=== PATIENT | male | born 1945 | race Caucasian/White ===

== ENCOUNTER → 2023-05-16 15:05 | Outpatient (REF) | payer MEDICARE, BC, SELFPAY | LOC: HWRAD 15:05 | PROVIDERS: ATTENDING PHYSICIAN Internal Medicine Critical Care Medicine; FAMILY PHYSICIAN Internal Medicine | DX: R05.1 Acute cough (principal); J47.1 Bronchiectasis with (acute) exacerbation | CPT/HCPCS: 71250 ==

== ENCOUNTER → 2023-05-27 08:42 | Outpatient (REF) | payer MEDICARE, BC, SELFPAY ==
[2023-05-27 09:24] LABS: % Basophils 0.6 % (0-2); % Eosinophils 2.2 % (0-6); % Immature Granulocytes 0.1 % (0-0.5); % Lymphocytes 21.6 % (20.5-51.1); % Monocytes 6.8 % (1.7-9.3); % Neutrophils 68.7 % (42.2-75.2); Absolute Eosinophils 0.2 10^3/uL (0-0.7); Absolute Lymphocytes 1.6 10^3/uL (1.2-3.4); Absolute Monocytes 0.5 10^3/uL (0.1-0.6); Hematocrit 44.4 % (39.0-52.0); Hemoglobin 14.5 g/dL (13.0-18.0); Mean Corp Hgb Conc. 32.7 g/dL (33.0-37.0); Mean Corpuscular Hgb 29.1 pg (27.0-31.0); Mean Platelet Volume 8.9 fL (7.4-10.4); Nucleated Red Blood Cells % 0 % (-); Platelet Count 379 10^3/uL (130-400); Red Blood Cell Count 4.99 10^6/uL (4.70-6.10); Red Cell Dist. Width 12.8 % (11.5-14.5); White Blood Cell Count 7.2 10^3/uL (4.8-10.8)
[2023-05-27 09:59] LABS: ALT (SGPT) 15 U/L (0-50); AST (SGOT) 23 U/L (17-59); Albumin 4.3 g/dl (3.5-5.0); Alkaline Phosphatase 77 U/L (38-126); Blood Urea Nitrogen 21 mg/dl (9-20); Calcium 10.2 mg/dl (8.4-10.2); Carbon Dioxide 29 mmol/L (22-30); Chloride 97 mmol/L (98-107); Glucose 95 mg/dl (70-99); HDL Cholesterol 63 mg/dl; LDL Cholesterol, Calculated 104 mg/dl; Sodium 136 mmol/L (135-145); Total Bilirubin 0.5 mg/dl (0.2-1.3); Total Cholesterol 192 mg/dl (50-199); Total Protein 7.5 g/dl (6.3-8.2); Triglyceride 129 mg/dl (10-149); Very Low Density Lipoprotein 25 mg/dl (0-30); eGFR > 60.00
[2023-05-27 10:23] LABS: PSA, Total - Diagnostic 0.89 ng/ml (0.0-4.0)
== END ==
LOC: REG 08:42
PROVIDERS: ATTENDING PHYSICIAN Internal Medicine
DX: E78.2 Mixed hyperlipidemia (principal); R73.01 Impaired fasting glucose; C61 Malignant neoplasm of prostate
CPT/HCPCS: 36415; 80053; 80061; 83036; 84153; 85025

== ENCOUNTER 2024-05-04 19:47 | Inpatient (IN) | payer MEDICARE, BC, SELFPAY ==
[2024-05-04 15:39] VITALS: BP 137/74
[2024-05-04 16:05] LABS: % Basophils 0.4 % (0-2); % Eosinophils 0.2 % (0-6); % Immature Granulocytes 0.7 % (0-0.5); % Lymphocytes 11.2 % (20.5-51.1); % Neutrophils 80.5 % (42.2-75.2); Absolute Basophils 0.1 10^3/uL (0-0.2); Absolute Immature Granulocytes 0.1 10^3/uL (0-0.05); Absolute Lymphocytes 1.5 10^3/uL (1.2-3.4); Absolute Neutrophils 11.1 10^3/uL (1.4-6.5); Hematocrit 37.9 % (39.0-52.0); Hemoglobin 12.8 g/dL (13.0-18.0); Mean Corp Hgb Conc. 33.8 g/dL (33.0-37.0); Mean Corpuscular Hgb 29.8 pg (27.0-31.0); Mean Corpuscular Volume 88.1 fL (80.0-94.0); Mean Platelet Volume 8.1 fL (7.4-10.4); Nucleated Red Blood Cells % 0 % (-); Platelet Count 382 10^3/uL (130-400); Red Cell Dist. Width 12.7 % (11.5-14.5); White Blood Cell Count 13.8 10^3/uL (4.8-10.8)
[2024-05-04 16:27] LABS: COVID-19 Antigen Negative (Negative)
[2024-05-04 16:28] LABS: ALT (SGPT) 16 U/L (0-50); AST (SGOT) 20 U/L (17-59); Albumin 3.8 g/dl (3.5-5.0); Alkaline Phosphatase 71 U/L (38-126); Blood Urea Nitrogen 16 mg/dl (9-20); Calcium 9.4 mg/dl (8.4-10.2); Carbon Dioxide 29 mmol/L (22-30); Chloride 96 mmol/L (98-107); Glucose 110 mg/dl (70-99); Potassium 4.1 mmol/L (3.5-5.1); Sodium 134 mmol/L (135-145); Total Bilirubin 0.4 mg/dl (0.2-1.3); Total Protein 6.9 g/dl (6.3-8.2); eGFR > 60.00
[2024-05-04 16:30] LABS: NT-proBNP 128 pg/ml
--- NOTE | 2024-05-04 17:39 | ED.GENMED ---
History of Present Illness
General
Chief Complaint: Cough
Source: patient
Exam Limitations: none
Time Seen by Provider: 05/04/24 17:37
Nursing documentation reviewed up to this point in time: agreed with
History of Present Illness
History of Present Illness:
The patient is a pleasant 78-year-old man with a past medical history of asthma and bronchiectasis who reports persistent ongoing severe cough despite taking 5 days of Levaquin. Patient reports shortness of breath. He denies fever. He also
reports swelling of his bilateral ankles, which he is wondering is from the Levaquin. He denies a history of PE and DVT. He denies chest pain.
Past History
Past History
ED Past Medical History: Asthma and Other (Bronchiectasis)
ED Past Surgical History: Other
Social History
Tobacco: Non-smoker
Alcohol: None
Drug: None
Personal:
Living: with family
Employment: Retired
Family History
Family History: Other
Review of Systems
Review of Systems
Allergies reviewed?: Yes
All Other Systems: ROS reviewed and negative except as documented in HPI and ROS
Constitutional: Reports fatigue
EENT: Reports no symptoms
Respiratory: Reports cough and trouble breathing
Cardiac: Reports no symptoms
ABD/GI: Reports no symptoms
: Reports no symptoms
Musculoskeletal: Reports edema
Skin: Reports no symptoms
Neurological: Reports no symptoms
Endocrine: Reports no symptoms
Hematologic/Lymphatic: Reports no symptoms
Psychiatric: Reports no symptoms
Phy Exam
Physical Exam
Physical Exam:
Physical Exam
General: no apparent distress, not acutely ill
Neck: supple. no meningeal signs. normal psoterior pharynx
Heart: s1/s2 regular rate and rhythm, no murmur. equal radial pulses.
Lungs: Bilateral crackles. No tachypnea or respiratory distress
Abdomen: normal bowel sounds. not tender. no CVAT
Neuro: alert and oriented. no focal neurological deficits
Skin: no rash
Psychiatric: well kept. interactive and cooperative
Extremities: no edema. no calf tenderness. negative homans. good distal pulses
Course
Orders/Labs/Results
Orders:
Orders
05/04/24 15:44
Electrocardiogram (*1) Urgent
Reason for Study: Shortness of Breath
05/04/24 15:45
EKG- Treatment ONCE
CR Chest - 2 Views Urgent
Comment:
Reason For Exam: PARK, productive cough x 1 week
05/04/24 15:53
COVID-19 Antigen Urgent
Source: Nasal Swab
Complete Blood Count/With Diff Urgent
Comprehensive Metabolic Panel Urgent
NT-proBNP Urgent
Influenza A+B Rapid Molecular Urgent
PEDRO Source: Nasal Swab
Specimen Description:
05/04/24 18:38
CefTRIAXone [Rocephin] 1,000 mg IV NOW STA
05/04/24 18:39
Azithromycin 500 mg/250 ml [Zithromax Infusion] 500 mg in 250 ml IV NOW
Abnormal Lab Results
05/04/24
15:53
WBC 13.8 H 10^3/uL
(4.8-10.8)
RBC 4.30 L 10^6/uL
(4.70-6.10)
Hgb 12.8 L g/dL
(13.0-18.0)
Hct 37.9 L %
(39.0-52.0)
Abs Immat Gran (auto) 0.1 H 10^3/uL
(0-0.05)
Absolute Neuts (auto) 11.1 H 10^3/uL
(1.4-6.5)
Absolute Monos (auto) 1.0 H 10^3/uL
(0.1-0.6)
Immature Gran % 0.7 H %
(0-0.5)
Neutrophils % 80.5 H %
(42.2-75.2)
Lymphocytes % 11.2 L %
(20.5-51.1)
Sodium 134 L mmol/L
(135-145)
Chloride 96 L mmol/L
(98-107)
Glucose 110 H mg/dl
(70-99)
05/04/24 15:53
05/04/24 15:53
Vital Signs
Initial and Last Documented VS:
Initial Vital Signs
Temp Pulse Resp BP Pulse Ox
98.4 F 110 18 137/74 94
05/04/24 15:39 05/04/24 15:39 05/04/24 15:39 05/04/24 15:39 05/04/24 15:39
Last Documented Vital Signs
Temp Pulse Resp BP Pulse Ox
98.4 F 102 22 143/70 93
05/04/24 15:39 05/04/24 19:00 05/04/24 19:00 05/04/24 19:00 05/04/24 19:00
MDM/Problems Addressed
Differential Diagnosis Includes:
Acute viral pneumonia, acute bacterial pneumonia, asthma exacerbation
MDM/Problems Addressed:
Patient presents with acute cough and shortness of breath
Chronic conditions affecting care:
Asthma, bronchiectasis
Acute Exacerbation and/or Progression of Chronic Illness:
Patient may have acute exacerbation of asthma because from recent upper respiratory infection or pneumonia
*Radiology
Radiology exam reviewed: preliminary read by ED provider (Bilateral infiltrates seen. Chest x-ray reviewed by me) and radiology read reviewed
*Pulse Oximetry
Patient hypoxic: no
*EKG
Interpreted by ED Provider?: Yes
Interpretation: abnormal
Comparison EKG: no changes
Rate: tachycardiac
Rhythm: sinus
Tanner: left axis deviation
Interval: normal interval
QRS Pattern: normal QRS
Ischemia: non-specific ST changes
*Men'S Garment Fitter Interpretation
Rate: normal
Interpretation: normal
Rhythm: sinus
*Critical Care Note
Total Time (30-74mins, 75-104mins- exclusive of procedures): Not Applicable
Data Reviewed
Review of Other/Old Records Reveals: Discharge Summary (Discharge summary reviewed from April 2022 when patient was admitted for shortness of breath and bronchitis)
Source: patient
Patient Management
Social determinants of health affecting care: Living situation
Discussion with other providers: Hospitalist
Escalation/DeEscalation of care consider admission/obs:
Given patient still has what is concerning for bilateral pneumonia and ongoing symptoms, despite several days of Levaquin, decision made to admit for IV antibiotics
ED Attending Note
-
Portions of this chart may have been created with voice recognition software.� Occasional wrong word or��sound alike� substitutions may have occurred due to the inherent limitations of voice recognition software.
Discharge Plan
Departure
Patient Disposition: Admit
Date of Disposition: 05/04/24
Time of Disposition: 18:32
Admit to: Med/Surg
Presentation/result/management discussed w/ accepting MD/DO: Hospitalist
Patient with high blood pressure during this ER visit?: Yes
Condition: Good
Covid-19: Negative COVID-19
Discharge Problem:
Pneumonia
Prescriptions:
No Action
fluticasone propionate 1 SPRAY spray,suspension
2 spray intranasal BID
triamterene-hydrochlorothiazid 37.5-25 mg capsule
1 cap PO DAILY
albuterol sulfate 90 mcg/actuation HFA aerosol inhaler
2 puff INHALATION R Q4HPRN PRN (Reason: sob/wheezing)
calcium carbonate-vitamin D3 500 mg-3.125 mcg (125 unit) Tablet
1 tab PO DAILY
sodium chloride 3 % Solution For Nebulization
4 ml INHALATION R BID
Theragen Tablet
1 tab PO DAILY
acetaminophen [Tylenol Extra Strength] 500 mg Tablet
1,000 mg PO Q6HPRN PRN (Reason: headache/mild pain)
benzonatate 100 mg Capsule
100 mg PO TIDPRN PRN (Reason: cough)
Dulera 200-5 mcg/actuation Hfa Aerosol Inhaler
2 puff INHALATION R BID
guaifenesin [Mucinex] 600 mg Tablet Extended Release 12hr
600 mg PO DAILY
Referrals:
David Albarran DO [Family Provider] -
Interventions
Interventions:
*Risk Screen - Suicide Last Done: 05/04/24 15:39
*General Assessment Last Done: 05/04/24 15:39
*Neglect/Abuse Screening Last Done: 05/04/24 15:39
ED- Pulmonary Assessment Last Done: 05/04/24 18:03
Discharge Date and Time
Print Language: SLOVENIAN
[2024-05-04 18:06] VITALS: BP 125/61
[2024-05-04] MEDS: ROCEPHIN 1000 MG IV (18:52)
[2024-05-04] MEDS: ZITHROMAX INFUSION 250 IV (18:56)
[2024-05-04 19:00] VITALS: BP 143/70
--- NOTE | 2024-05-04 19:02 | HPS.HSE ---
Family Physician
-
Family Physician: David Albarran
Chief Complaint
-
persistent cough
History of Present Illness
Patient is a 78-year-old male with past medical history significant for asthma, bronchiectasis and GERD who presented to [facility] ED for evaluation of severe persistent cough. Patient states cough started on Saturday, 10 days ago, he went
to see Tumbler Drier Operator Saturday last week who prescribed Levaquin and supportive measures. Patient reports he took 5 days of Levaquin and felt no better but also reports not feeling any worse. Patient states cough has been keeping him up and is hard to
sleep. He denies any associated symptoms such as fever, chills, nausea, vomiting, diarrhea or shortness of breath.
Medical History
Past Medical History
Past Medical History: Reports Other
Additional Past Medical History:
asthma
bronchiectasis
hyperlipidemia
GERD
Past Surgical History: Reports Other
Additional Past Surgical History:
nasal polyectomy
CATERACT SURGERY IN BOTH EYES 02/2019
Radiation for Prostate CA 2018
Right L4-L5 IL QING 06/15/21
Right L4-L5 IL QING 07/20/21
B/L L4-L5, L5-S1 MBB 08/22/21
MILD procedure- Dr Montano 03/2022
tonsillectomy
Social History
Tobacco: Non-smoker
Alcohol: None
Drug: None
Personal:
Living: With Family
Employment: Retired
Family History
Family History: Not pertinent
Allergies / Home Medications
Allergies reflects when Allergies were last updated in [facility].
Home Medications with original date entered in [facility]
Allergy/Medication List:
Allergies
Allergy/AdvReac Type Severity Reaction Status Date / Time
Sulfa (Sulfonamide Allergy Mild Unknown Verified 02/17/18 14:45
Antibiotics)
cefuroxime [From Ceftin] AdvReac Mild Nausea Verified 04/23/22 13:37
Home Medications
fluticasone propionate 50 mcg/actuation nasal spray,suspension 2 spray intranasal BID Allergies 02/14/18
albuterol sulfate 90 mcg/actuation aerosol inhaler 2 puff inhalation R Q4HPRN PRN sob/wheezing 04/21/22
calcium 500 mg (as carbonate)-vitamin D3 3.125 mcg (125 unit) tablet 1 tab PO DAILY Supplement 04/21/22
triamterene 37.5 mg-hydrochlorothiazide 25 mg capsule 1 cap PO DAILY Blood pressure 04/21/22
acetaminophen 500 mg tablet (Tylenol Extra Strength) 1,000 mg PO Q6HPRN PRN headache/mild pain 05/04/24
benzonatate 100 mg capsule 100 mg PO TIDPRN PRN cough 05/04/24
guaifenesin 600 mg tablet, extended release 12 hr (Mucinex) 600 mg PO DAILY 05/04/24
mometasone-formoterol HFA 200 mcg-5 mcg/actuation aerosol inhaler (Dulera) 2 puff inhalation R BID 05/04/24
sodium chloride 3 % for nebulization 4 ml inhalation R BID 05/04/24
therapeutic multivitamin 1 tab PO DAILY 05/04/24
Review of Systems
-
History Source: Patient
Constitutional: Reports No Symptoms
EENT: Reports No Symptoms
Respiratory: Reports Cough
Cardiac: Reports No Symptoms
Abdomen/GI: Reports No Symptoms
: Reports No Symptoms
Musculoskeletal: Reports No Symptoms
Skin: Reports No Symptoms
Neurological: Reports No Symptoms
Endocrine: Reports No Symptoms
Hematologic/Lymphatic: Reports No Symptoms
Psych: Reports No Symptoms
Physical Exam
Vital Signs
Vital Signs
Temp Pulse Resp BP Pulse Ox
98.4 F 95 17 125/61 94
05/04/24 15:39 05/04/24 18:30 05/04/24 18:30 05/04/24 18:06 05/04/24 18:30
Physical Exam
General: Well Developed, Well Nourished, No Apparent Distress, Comfortable and Conversant
HEENT: NormoCephalic, Moist mucous membranes, Atraumatic, [place] Conjunctivae, Nose Appears Normal and Ears Appear Normal
Respiratory: Clear and Non Labored Respirations
Cardiac: S1/S2 and Regular Rhythm
GI: Soft, Non Tender, Non Distended and Normal Bowel Sounds; No Organomegaly
Rectal: Deferred by Provider
Genito-urinary: Deferred by me
Musculoskeletal: No Clubbing, No Cyanosis and No Edema
Skin: Warm and IV/Catheter Site
Neuro: Awake, Alert, AO x 3 and Nonfocal/grossly intact
Psych: Calm and Intact Judgment/Insight
Laboratory Results
-
05/04/24 15:53
05/04/24 15:53
Laboratory Results
Total Bilirubin 0.4 mg/dl (0.2-1.3) 05/04/24 15:53
AST 20 U/L (17-59) 05/04/24 15:53
ALT 16 U/L (0-50) 05/04/24 15:53
Alkaline Phosphatase 71 U/L (38-126) 05/04/24 15:53
Data Reviewed
-
Diagnostic Radiology: Report Reviewed by me (CXR: Patchy left lower lobe opacity suspicious for pneumonia. Cannot exclude minimal patchy right lower lobe pneumonia.)
Medical Tests (Nuc Med, Echo, EKG etc): Report Reviewed by me (EKG: SINUS TACHYCARDIA POSSIBLE LEFT ATRIAL ENLARGEMENT INCOMPLETE RIGHT BUNDLE BRANCH BLOCK LEFT ANTERIOR FASCICULAR BLOCK)
Lab Data: Labs Reviewed by me (WBC 13.8)
Impression/Plan
-
IMPRESSION/PLAN:
#pneumonia
pneumonia that failed out patient antibiotic therapy
Covid: Negative
Influenza: negative
EKG: SINUS TACHYCARDIA
POSSIBLE LEFT ATRIAL ENLARGEMENT
INCOMPLETE RIGHT BUNDLE BRANCH BLOCK
LEFT ANTERIOR FASCICULAR BLOCK
CXR: Patchy left lower lobe opacity suspicious for pneumonia.
Cannot exclude minimal patchy right lower lobe pneumonia.
- Admit to med/surg
- IV Cefepime and Azithromycin
- Sputum cultures
- Legionella and Step antigen
- supportive care
#asthma
#bronchiectasis
- continue albuterol HFA PRN, fluticasone nasal spray, Dulera and NaCl nebs
#hyperlipidemia
#GERD
Code status: full code
DVT prophylaxis: Lovenox Sq
--- NOTE | 2024-05-04 19:32 | W.PN.UPDATE ---
Update Note
Progress Note Update
This is an addendum to the H&P written by Nalini Louis on 05/04/2024. Patient seen and examined independently with HOG TENDER.
78-year-old male past medical history of pneumonias in the past, asthma, bronchiectasis, hypertension, presenting with cough 10 days ago that is productive.
Completed 5-day course of Levaquin yesterday without improvement.
Labs show leukocytosis
Chest x-ray shows patchy left lower lobe opacity suspicious for pneumonia. Cannot exclude right lower lobe pneumonia.
COVID-negative. Flu negative.
Patient with persistent left lower lobe pneumonia despite treatment with Levaquin. Check sputum culture. Check strep antigen Legionella. Cefepime/azithromycin.
[2024-05-04 20:07] VITALS: BP 130/64
[2024-05-04] MEDS: MAXIPIME 1000 MG IV (22:14)
[2024-05-04] MEDS: STERILE WATER FOR INJECTION 10 ML IV (22:15)
[2024-05-04 22:28] VITALS: BMI 26.7
[2024-05-04] MEDS: SYMBICORT 160/4.5 MCG INHALER INH (23:09)
[2024-05-04] MEDS: SODIUM CHLORIDE 3% FOR INHALATION INH (23:09)
[2024-05-05] MEDS: MAXIPIME 1000 MG IV ×4 (05:00→22:15)
[2024-05-05] MEDS: STERILE WATER FOR INJECTION 10 ML IV ×4 (05:00→22:14)
[2024-05-05 05:03] VITALS: BP 120/68
[2024-05-05 05:12] LABS: Hematocrit 33.4 % (39.0-52.0); Hemoglobin 11.9 g/dL (13.0-18.0); Mean Corp Hgb Conc. 35.6 g/dL (33.0-37.0); Mean Corpuscular Hgb 31.9 pg (27.0-31.0); Mean Corpuscular Volume 89.5 fL (80.0-94.0); Mean Platelet Volume 8.2 fL (7.4-10.4); Platelet Count 312 10^3/uL (130-400); Red Blood Cell Count 3.73 10^6/uL (4.70-6.10); Red Cell Dist. Width 12.7 % (11.5-14.5); White Blood Cell Count 12.9 10^3/uL (4.8-10.8)
[2024-05-05] MEDS: SODIUM CHLORIDE 3% FOR INHALATION 1 VIAL INH ×2 (07:20→19:24)
[2024-05-05] MEDS: SYMBICORT 160/4.5 MCG INHALER 2 PUFF INH ×2 (07:21→19:24)
[2024-05-05] MEDS: THERAGRAN 1 TABLET PO (08:18)
[2024-05-05] MEDS: OSCAL 500 + D 500 MG PO (08:18)
[2024-05-05] MEDS: MUCINEX 600 MG PO ×2 (08:18→20:42)
[2024-05-05] MEDS: DYAZIDE 1 CAPSULE PO (10:19)
[2024-05-05 10:59] LABS: Blood Urea Nitrogen 16 mg/dl (9-20); Carbon Dioxide 27 mmol/L (22-30); Chloride 98 mmol/L (98-107); Estimated Creatinine Clearance 69 ml/min; Glucose 124 mg/dl (70-99); Potassium 3.9 mmol/L (3.5-5.1); Sodium 135 mmol/L (135-145); eGFR > 60.00
--- NOTE | 2024-05-05 11:52 | PTCARENOTE ---
Pt off oxygen and maintaining SPO2 at 92%. Pt still w/ moist/productive cough. OOB ambulating to bathroom and to chair.
--- NOTE | 2024-05-05 12:12 | W.PN.HOSP.TC ---
Today's Communication/Plan
-
iv abx
sputum sample
wean o2
Assessment / Plan
Assessment / Plan
#Acute hypoxic respiratory insufficiency
#Pneumonia with suspected bronchiectasis exacerbation
#History of SHIV
#Chronic cough
Continue with broad-spectrum antibiotic with cefepime azithromycin
Check sputum sample
Streptococcus and Legionella antigen negative. Influenza negative. COVID-negative.
Continue with bronchodilators, nebulizers and vest therapy and Acapella
Anti-cough meds prn
#Primary hypertension
Continue home medication
BP 120/68
Chronic back pain
Tylenol prn
PT eval
Asthma not in acute exacerbation
Cont with BC
DVT ppx-Lovenox
Anticipated Discharge: > 48 hours
Subjective/Interval History
-
Date of Service: May 05, 2024
states of productive cough
Objective Data
-
Labs:
Laboratory Results
05/05/24 05/05/24
04:57 10:27
WBC 12.9 H
Hgb 11.9 L
Hct 33.4 L
Plt Count 312
Sodium 135
Potassium 3.9
Chloride 98
Carbon Dioxide 27
BUN 16
Creatinine 0.8
Glucose 124 H
Calcium 9.0
Vital Signs:
Vital Signs
Temp Pulse Resp BP Pulse Ox
98.5 F 88 18 120/68 98
05/05/24 05:03 05/05/24 07:31 05/05/24 07:31 05/05/24 05:03 05/05/24 08:39
I&O
05/04/24 05/05/24 05/06/24
06:59 06:59 06:59
Intake Total 360 / 360
Balance 360 / 360
Physical Exam
-
General: Well Developed and No Apparent Distress
HEENT: Normocephalic, Atraumatic and Moist Mucous Membranes
Respiratory: Clear to Auscultation
Cardiac: Regular Rhythm and S1/S2; Negative Murmur, Rub or Gallop
GI: Soft, Nontender, Nondistended and Normal Bowel Sounds; Negative Organomegaly
Rectal: Deferred by Provider
Musculoskeletal: No Clubbing, No Cyanosis and No Edema
Skin: Negative Rash
Neuro: Awake, AO x 3, No Motor Deficits and Nonfocal/Grossly Intact
Psych: Calm
--- NOTE | 2024-05-05 12:28 | PTCARENOTE ---
Oxygen now holding at 89%. Pt does not feel sob. Placed back on 2L NC.
[2024-05-05 13:37] VITALS: BP 132/72
[2024-05-05 15:08] VITALS: BP 133/68
--- NOTE | 2024-05-05 16:52 | PN.CDI ---
CDI
- -
CDI:
Physician Documentation Request
Admit Date: 05/04/24 19:47
Dear Doctor Keena,
Please review the following and provide your response in the progress notes.
Clinical Indicators:
PN, 05/05
#Pneumonia with suspected bronchiectasis exacerbation
Laboratory Tests
05/04/24 05/05/24
15:53 04:57
WBC 13.8 H 12.9 H
Selected Entries
05/04/24
15:39 05/04/24
18:07 05/04/24
18:08
Pulse 110 98 97
05/04/24
18:15
Pulse 106
Based on the above and your clinical assessment, please clarify which of the following most accurately describes the status of the patient's infection:
Sepsis, POA
Localized Infection Only, Without Systemic Illness
- indicate the site/source, such as UTI, pneumonia etc.
Other(please specify)
Sepsis
- Systemic manifestations of infection, with 2 or more SIRS criteria which include:
- Fever >100.4 degrees F or hypothermia < 96.8 degrees F
- Leukocytosis - WBC > 12,000 or leukopenia - WBC < 4,000 or > 10% bands
- Tachycardia > 90 beats per minute
- Tachypnea - RR > 20 breaths per minute or PaCO2 , 32mmHg
Source: Merck Manual 2013
- Indicate the known or suspected underlying infection, such as UTI, pneumonia or cellulitis
Use of terms such as suspected, likely, concern for, or probable (associated with a specific diagnosis that is being evaluated, monitored, or treated as if it exists) are acceptable and can be coded in the inpatient setting, when documented at the
time of discharge.
Thank you,
Mercy Doherty RN BSN CCDS
CDI Specialist
Please contact via tiger text
Please use your independent medical judgment in providing your response.
[2024-05-05] MEDS: ZITHROMAX INFUSION 250 IV (17:33)
[2024-05-05] MEDS: LOVENOX 40 MG SC (17:34)
[2024-05-05] MEDS: TESSALON PERLES 200 MG PO (20:44)
[2024-05-05 20:45] VITALS: BMI 26.6
[2024-05-05 23:00] VITALS: BP 134/65
[2024-05-06] MEDS: MAXIPIME 1000 MG IV ×4 (04:07→21:19)
[2024-05-06] MEDS: STERILE WATER FOR INJECTION 10 ML IV ×4 (04:07→21:19)
[2024-05-06] MEDS: SYMBICORT 160/4.5 MCG INHALER 2 PUFF INH ×2 (07:16→19:07)
[2024-05-06] MEDS: SODIUM CHLORIDE 3% FOR INHALATION 1 VIAL INH ×2 (07:16→19:07)
[2024-05-06 07:53] VITALS: BP 124/59
[2024-05-06] MEDS: THERAGRAN 1 TABLET PO (08:11)
[2024-05-06] MEDS: TESSALON PERLES 200 MG PO ×2 (08:11→19:01)
[2024-05-06] MEDS: DYAZIDE 1 CAPSULE PO (08:11)
[2024-05-06] MEDS: MUCINEX 600 MG PO ×2 (08:12→21:19)
[2024-05-06] MEDS: OSCAL 500 + D 500 MG PO (08:12)
[2024-05-06] MEDS: FLUSH (NSS) 2 FLUSH IV ×2 (10:03→15:24)
[2024-05-06 10:32] LABS: Blood Urea Nitrogen 15 mg/dl (9-20); Calcium 8.9 mg/dl (8.4-10.2); Carbon Dioxide 32 mmol/L (22-30); Chloride 96 mmol/L (98-107); Estimated Creatinine Clearance 61 ml/min; Glucose 87 mg/dl (70-99); Potassium 4.2 mmol/L (3.5-5.1); Sodium 135 mmol/L (135-145); eGFR > 60.00
[2024-05-06 10:40] LABS: % Basophils 0.4 % (0-2); % Immature Granulocytes 0.4 % (0-0.5); % Monocytes 9.9 % (1.7-9.3); % Neutrophils 63.3 % (42.2-75.2); Absolute Eosinophils 0.1 10^3/uL (0-0.7); Absolute Lymphocytes 1.7 10^3/uL (1.2-3.4); Absolute Monocytes 0.7 10^3/uL (0.1-0.6); Absolute Neutrophils 4.4 10^3/uL (1.4-6.5); Hematocrit 36.9 % (39.0-52.0); Hemoglobin 12.6 g/dL (13.0-18.0); Mean Corp Hgb Conc. 34.1 g/dL (33.0-37.0); Mean Corpuscular Hgb 30.3 pg (27.0-31.0); Mean Corpuscular Volume 88.7 fL (80.0-94.0); Mean Platelet Volume 8.5 fL (7.4-10.4); Nucleated Red Blood Cells % 0 % (-); Platelet Count 342 10^3/uL (130-400); Red Blood Cell Count 4.16 10^6/uL (4.70-6.10)
--- NOTE | 2024-05-06 12:52 | W.PN.HOSP.TC ---
Addendum entered and electronically signed by Reddy Brink MD 05/06/24 13:28:
sepsis poa
Acute hypoxic respiratory insufficiency-poa
Original Note:
Today's Communication/Plan
-
await sputum culture
po abx on dc
PT eval
Assessment / Plan
Assessment / Plan
#Acute hypoxic respiratory insufficiency
#Pneumonia with suspected bronchiectasis exacerbation
#History of SHIV
#Chronic cough
Continue with broad-spectrum antibiotic with cefepime azithromycin. Switch to po meds on dc.
Check sputum sample-prelim with usual normal andrzej. Await final culture.
Streptococcus and Legionella antigen negative. Influenza negative. COVID-negative.
Continue with bronchodilators, nebulizers and vest therapy and Acapella
Anti-cough meds prn
OP repeat CXR in 4-6 weeks to assess for resolution
#Primary hypertension
Continue home medication
BP 124/59
Chronic back pain
Tylenol prn
PT eval
Asthma not in acute exacerbation
Cont with BC
DVT ppx-Lovenox
Anticipated Discharge: Within 24 hours
Subjective/Interval History
-
Date of Service: May 06, 2024
states remains with cough-productive at times
Objective Data
-
Labs:
Laboratory Results
05/06/24
07:33
WBC 7.0
Hgb 12.6 L
Hct 36.9 L
Plt Count 342
Sodium 135
Potassium 4.2
Chloride 96 L
Carbon Dioxide 32 H
BUN 15
Creatinine 0.9
Glucose 87
Calcium 8.9
Vital Signs:
Vital Signs
Temp Pulse Resp BP Pulse Ox
97.8 F 90 20 124/59 91
05/06/24 07:53 03/26/25 08:11 05/06/24 07:53 05/06/24 08:11 05/06/24 07:53
I&O
05/05/24 05/06/24 05/07/24
06:59 06:59 06:59
Intake Total 850 / 850
Balance 850 / 850
Physical Exam
-
General: Well Developed and No Apparent Distress
HEENT: Normocephalic, Atraumatic and Moist Mucous Membranes
Respiratory: Wheezes (Mild L>R); Negative Accessory Resp Muscle Use
Cardiac: Regular Rhythm and S1/S2; Negative Murmur, Rub or Gallop
GI: Soft, Nontender, Nondistended and Normal Bowel Sounds; Negative Organomegaly
Rectal: Deferred by Provider
Musculoskeletal: No Clubbing, No Cyanosis and No Edema
Skin: Negative Rash
Neuro: Awake, AO x 3, No Motor Deficits and Nonfocal/Grossly Intact
Psych: Calm
[2024-05-06 14:46] VITALS: BP 151/68
[2024-05-06 14:54] VITALS: BP 162/67; PULSE 91; O2SAT 95
--- NOTE | 2024-05-06 17:00 | CM ---
Patient with Dx sepsis. Room air. PT Eval; No skilled PT needed. Per nurse; ambulatory in halls.
Spoke with patient who resides with his in a one story house with no outside steps.
The patient was independent in ADLs and ambulation.
He is active and drives.
His is well and can assist at home. He has 2 daughters and 7 grand-daughters.
The patient's only DME is a pulmonary vest.
No prior VN or SNF.
PCP - David Albarran
Pharmacy - [facility]
No CM d/c needs identified.
Plan home.
[2024-05-06] MEDS: LOVENOX 40 MG SC (17:13)
[2024-05-06] MEDS: ZITHROMAX INFUSION 250 IV (17:14)
[2024-05-06] MEDS: TYLENOL 650 MG PO (21:26)
[2024-05-06 23:00] VITALS: BP 117/58
[2024-05-07] MEDS: STERILE WATER FOR INJECTION 10 ML IV ×2 (04:26→10:47)
[2024-05-07] MEDS: MAXIPIME 1000 MG IV ×2 (04:26→10:47)
[2024-05-07 06:48] LABS: Blood Urea Nitrogen 17 mg/dl (9-20); Calcium 9.3 mg/dl (8.4-10.2); Carbon Dioxide 33 mmol/L (22-30); Chloride 97 mmol/L (98-107); Estimated Creatinine Clearance 61 ml/min; Glucose 102 mg/dl (70-99); Potassium 4.1 mmol/L (3.5-5.1); Sodium 136 mmol/L (135-145); eGFR > 60.00
[2024-05-07 07:33] VITALS: BP 120/64
[2024-05-07] MEDS: DYAZIDE 1 CAPSULE PO (07:42)
[2024-05-07] MEDS: OSCAL 500 + D 500 MG PO (07:43)
[2024-05-07] MEDS: THERAGRAN 1 TABLET PO (07:43)
[2024-05-07] MEDS: MUCINEX 600 MG PO (07:43)
[2024-05-07] MEDS: SYMBICORT 160/4.5 MCG INHALER 2 PUFF INH (07:45)
[2024-05-07] MEDS: SODIUM CHLORIDE 3% FOR INHALATION 1 VIAL INH (07:45)
[2024-05-07 09:19] LABS: Hematocrit 34.9 % (39.0-52.0); Hemoglobin 11.8 g/dL (13.0-18.0); Mean Corp Hgb Conc. 33.8 g/dL (33.0-37.0); Mean Corpuscular Hgb 30.2 pg (27.0-31.0); Mean Corpuscular Volume 89.3 fL (80.0-94.0); Mean Platelet Volume 8.3 fL (7.4-10.4); Nucleated Red Blood Cells % 0 % (-); Platelet Count 386 10^3/uL (130-400); Red Blood Cell Count 3.91 10^6/uL (4.70-6.10); Red Cell Dist. Width 12.8 % (11.5-14.5); White Blood Cell Count 6.9 10^3/uL (4.8-10.8)
[2024-05-07] MEDS: FLUSH (NSS) 2 FLUSH IV (10:47)
--- NOTE | 2024-05-07 11:08 | W.PN.HOSP.TC ---
Today's Communication/Plan
-
po abx
op repeat CXR
Assessment / Plan
Assessment / Plan
#Acute hypoxic respiratory insufficiency
#Pneumonia with suspected bronchiectasis exacerbation
#History of SHIV
#Chronic cough
Continue with broad-spectrum antibiotic with cefepime azithromycin. Switch to po meds on dc.
Check sputum sample-prelim with usual normal andrzej final results
Streptococcus and Legionella antigen negative. Influenza negative. COVID-negative.
Continue with bronchodilators, nebulizers and vest therapy and Acapella
Anti-cough meds prn
OP repeat CXR in 4-6 weeks to assess for resolution
#Primary hypertension
Continue home medication
BP 124/59
Chronic back pain
Tylenol prn
PT eval
Asthma not in acute exacerbation
Cont with BC
DVT ppx-Lovenox
More than 30 minutes spent in discharge including
Final examination of the patient
Summarizing hospital stay
Instructions for continuing care to all relevant caregivers
Preparation of discharge records, prescriptions, and referral forms
Total time spent (in minutes): 52
Anticipated Discharge: Today
Subjective/Interval History
-
Date of Service: May 07, 2024
remains afebrile
on room air
tolerating diet
some productive cough remains
Objective Data
-
Labs:
Laboratory Results
05/07/24
06:10
WBC 6.9
Hgb 11.8 L
Hct 34.9 L
Plt Count 386
Sodium 136
Potassium 4.1
Chloride 97 L
Carbon Dioxide 33 H
BUN 17
Creatinine 0.9
Glucose 102 H
Calcium 9.3
Vital Signs:
Vital Signs
Temp Pulse Resp BP Pulse Ox
98.0 F 84 16 120/64 93
05/07/24 07:33 05/07/24 07:49 05/07/24 07:49 05/07/24 07:42 05/07/24 07:49
I&O
05/06/24 05/07/24 05/08/24
06:59 06:59 06:59
Intake Total 850 / 850 960 / 960 480 / 480
Balance 850 / 850 960 / 960 480 / 480
Physical Exam
-
General: Well Developed and No Apparent Distress
HEENT: Normocephalic, Atraumatic and Moist Mucous Membranes
Respiratory: Clear to Auscultation; Negative Accessory Resp Muscle Use
Cardiac: Regular Rhythm and S1/S2; Negative Murmur, Rub or Gallop
GI: Soft, Nontender, Nondistended and Normal Bowel Sounds; Negative Organomegaly
Rectal: Deferred by Provider
Musculoskeletal: No Clubbing, No Cyanosis and No Edema
Skin: Negative Rash
Neuro: Awake, AO x 3, No Motor Deficits and Nonfocal/Grossly Intact
Psych: Calm
--- NOTE | 2024-05-07 11:09 | W.DCSUMMARY ---
Discharge Summary
Discharge Data
Date of Admission: 05/04/24
Date of Discharge: 05/07/24
-
Pending Results: No
Hospital Course
78-year-old male past medical history of chronic cough, history of SHIV, bronchiectasis, hypertension, chronic back pain is presented from home with persistent productive cough. Patient follow-up with internal combustion engine assembler and was given Levaquin as
outpatient. Patient states of productive cough persist and decided come into the ER. Patient was found to have a leukocytosis on admission. Chest x-ray with patchy lower lobe opacity concerning for pneumonia. Legionella and strep pneumo antigen
was found to be negative. Influenza was negative. COVID was checked and negative. Sputum sample was sent and was found to have usual respiratory andrzej. Patient was maintained on cefepime and azithromycin. Patient was afebrile. Patient was
tolerating diet. Patient was on room air. Patient with transition to p.o. antibiotics recommended outpatient follow-up with his primary internal combustion engine assembler.
Discharge Plan
-
Patient Disposition: Home (Routine Discharge)
Discharge Diagnosis/Procedures: Acute hypoxic respiratory insufficiency
Pneumonia with suspected bronchiectasis exacerbation
Condition: Fair
Diet: Regular
Activity: With assistance and As tolerated
Driving Restrictions: As prior to admission
Others Tests: Repeat Chest xray in 4-6 weeks to assess for resolution of pneumonia
Referrals:
Dov Harman MD [Active] - in two to four weeks
David Albarran DO [Family Provider] - in less than 1 week
Prescriptions:
New
cefdinir 300 mg capsule
300 mg PO BID Qty: 7 0RF
azithromycin 250 mg tablet
250 mg PO DAILY 2 Days Qty: 2 0RF
Continued
fluticasone propionate 1 SPRAY spray,suspension
2 spray intranasal BID
triamterene-hydrochlorothiazid 37.5-25 mg capsule
1 cap PO DAILY
albuterol sulfate 90 mcg/actuation HFA aerosol inhaler
2 puff INHALATION R Q4HPRN PRN (Reason: sob/wheezing)
calcium carbonate-vitamin D3 500 mg-3.125 mcg (125 unit) Tablet
1 tab PO DAILY
sodium chloride 3 % Solution For Nebulization
4 ml INHALATION R BID
therapeutic multivitamin Tablet
1 tab PO DAILY
acetaminophen [Tylenol Extra Strength] 500 mg Tablet
1,000 mg PO Q6HPRN PRN (Reason: headache/mild pain)
benzonatate 100 mg Capsule
100 mg PO TIDPRN PRN (Reason: cough)
Dulera 200-5 mcg/actuation Hfa Aerosol Inhaler
2 puff INHALATION R BID
guaifenesin [Mucinex] 600 mg Tablet Extended Release 12hr
600 mg PO DAILY
Discharge Orders:
Discharge Patient (As Directed); Ordered 05/07/24
Ordered By: Reddy Brink
Discharge Date and Time
Discharge Date/Time: 05/07/24 12:13
Print Language: GREENLANDIC
--- NOTE | 2024-05-07 11:11 | CM ---
Met with patient at bedside
IMM explained & signed
PT eval
No needs
PLAN: home, no needs
drove self to hospital
[2024-05-07] MEDS: OMNICEF 300 MG PO (11:31)
[2024-05-07 12:06] VITALS: BP 121/63
== END 2024-05-07 12:13 | disposition home or self-care (01) | DRG 871 ==
LOC: 3 WEST ACU 19:47
PROVIDERS: Nurse Practitioner Family; ADMITTING PHYSICIAN Hospitalist; ATTENDING PHYSICIAN Hospitalist; EMERGENCY PHYSICIAN Emergency Medicine; FAMILY PHYSICIAN Internal Medicine
DX: A41.9 Sepsis, unspecified organism (principal); J18.9 Pneumonia, unspecified organism; J47.0 Bronchiectasis with acute lower respiratory infection; J47.1 Bronchiectasis with (acute) exacerbation; I45.2 Bifascicular block; R09.02 Hypoxemia; G89.29 Other chronic pain; J45.909 Unspecified asthma, uncomplicated; I10 Essential (primary) hypertension; Z79.899 Other long term (current) drug therapy; E78.5 Hyperlipidemia, unspecified; K21.9 Gastro-esophageal reflux disease without esophagitis; Z85.46 Personal history of malignant neoplasm of prostate; Z92.3 Personal history of irradiation; Z88.2 Allergy status to sulfonamides; Z11.52 Encounter for screening for COVID-19
CPT/HCPCS: 71046; 80048; 80053; 83880; 85025; 85027; 87070; 87205; 87449; 87502; 87811; 87899; 93005; 94640; 94669; 96365; 96375; 97162; 99285

== ENCOUNTER → 2024-06-01 11:41 | Outpatient (REF) | payer MEDICARE, BC, SELFPAY | LOC: RAD 11:41 | PROVIDERS: ATTENDING PHYSICIAN Nurse Practitioner Family | DX: Z87.01 Personal history of pneumonia (recurrent) (principal) | CPT/HCPCS: 71046 ==

== ENCOUNTER → 2024-06-08 14:31 | Outpatient (REF) | payer MEDICARE, BC, SELFPAY | LOC: HWRAD 14:31 | PROVIDERS: ATTENDING PHYSICIAN Nurse Practitioner Family; FAMILY PHYSICIAN Internal Medicine | DX: J47.9 Bronchiectasis, uncomplicated (principal) | CPT/HCPCS: 71250 ==

== ENCOUNTER → 2024-06-16 09:10 | Outpatient (REF) | payer MEDICARE, BC, SELFPAY ==
[2024-06-16 09:35] LABS: % Basophils 0.3 % (0-2); % Eosinophils 0.9 % (0-6); % Immature Granulocytes 0.3 % (0-0.5); % Lymphocytes 14.5 % (20.5-51.1); % Monocytes 10.1 % (1.7-9.3); % Neutrophils 73.9 % (42.2-75.2); Absolute Eosinophils 0.1 10^3/uL (0-0.7); Absolute Lymphocytes 1.1 10^3/uL (1.2-3.4); Absolute Monocytes 0.8 10^3/uL (0.1-0.6); Absolute Neutrophils 5.6 10^3/uL (1.4-6.5); Hematocrit 38.9 % (39.0-52.0); Mean Corp Hgb Conc. 33.4 g/dL (33.0-37.0); Mean Corpuscular Hgb 29.8 pg (27.0-31.0); Mean Corpuscular Volume 89.2 fL (80.0-94.0); Mean Platelet Volume 8.6 fL (7.4-10.4); Nucleated Red Blood Cells % 0 % (-); Platelet Count 417 10^3/uL (130-400); Red Blood Cell Count 4.36 10^6/uL (4.70-6.10); Red Cell Dist. Width 13.8 % (11.5-14.5); White Blood Cell Count 7.6 10^3/uL (4.8-10.8)
[2024-06-16 10:10] LABS: ALT (SGPT) 14 U/L (0-50); AST (SGOT) 19 U/L (17-59); Albumin 3.7 g/dl (3.5-5.0); Alkaline Phosphatase 63 U/L (38-126); Blood Urea Nitrogen 18 mg/dl (9-20); Calcium 9.6 mg/dl (8.4-10.2); Carbon Dioxide 31 mmol/L (22-30); Chloride 97 mmol/L (98-107); Glucose 104 mg/dl (70-99); HDL Cholesterol 56 mg/dl; LDL Cholesterol, Calculated 80 mg/dl; Potassium 3.9 mmol/L (3.5-5.1); Sodium 137 mmol/L (135-145); Total Bilirubin 0.5 mg/dl (0.2-1.3); Total Cholesterol 148 mg/dl (50-199); Triglyceride 62 mg/dl (10-149); Very Low Density Lipoprotein 12 mg/dl (0-30); eGFR > 60.00
[2024-06-16 10:39] LABS: PSA, Total - Screen 0.64 ng/ml (0.0-4.0)
[2024-06-16 10:54] LABS: Glycohemoglobin (HgbA1c) 5.9 % (4.0-5.6)
== END ==
LOC: REG 09:10
PROVIDERS: ATTENDING PHYSICIAN Internal Medicine
DX: E78.2 Mixed hyperlipidemia (principal); C61 Malignant neoplasm of prostate; Z79.899 Other long term (current) drug therapy; Z12.5 Encounter for screening for malignant neoplasm of prostate
CPT/HCPCS: 36415; 80053; 80061; 83036; 85025; G0103

== ENCOUNTER → 2024-08-12 11:41 | Outpatient (REF) | payer MEDICARE, BC, SELFPAY ==
[2024-08-12 12:43] LABS: Hematocrit 39.0 % (39.0-52.0); Hemoglobin 12.9 g/dL (13.0-18.0); Mean Corp Hgb Conc. 33.1 g/dL (33.0-37.0); Mean Corpuscular Volume 91.1 fL (80.0-94.0); Nucleated Red Blood Cells % 0 % (-); Platelet Count 391 10^3/uL (130-400); Red Cell Dist. Width 13.6 % (11.5-14.5)
== END ==
LOC: REG 11:41
PROVIDERS: ATTENDING PHYSICIAN Internal Medicine Pulmonary Disease; FAMILY PHYSICIAN Internal Medicine; REFERRING PHYSICIAN Internal Medicine Critical Care Medicine
DX: J47.9 Bronchiectasis, uncomplicated (principal); A31.0 Pulmonary mycobacterial infection; J45.991 Cough variant asthma
CPT/HCPCS: 36415; 82784; 85025; 87116

== ENCOUNTER → 2024-08-31 09:55 | Outpatient (REF) | payer MEDICARE, BC, SELFPAY | LOC: RST 09:55 | PROVIDERS: ATTENDING PHYSICIAN Internal Medicine Pulmonary Disease; FAMILY PHYSICIAN Internal Medicine | DX: J47.9 Bronchiectasis, uncomplicated (principal); R13.10 Dysphagia, unspecified | CPT/HCPCS: 74230; 92611 ==

== ENCOUNTER → 2024-10-13 15:11 | Outpatient (REF) | payer MEDICARE, BC, SELFPAY | LOC: REG 15:11 | PROVIDERS: ATTENDING PHYSICIAN Internal Medicine Infectious Disease; FAMILY PHYSICIAN Internal Medicine | DX: R05.3 Chronic cough (principal) | CPT/HCPCS: 87070; 87116; 87205 ==